=== PATIENT | male | born 2000 | race Two or more races ===

== ENCOUNTER 2024-07-24 17:03 | Emergency (ER) | payer MEDICAID, OTHER ==
[~2024-07-24] VITALS: Ht 193 cm; Wt 96.1 kg
[2024-07-24 18:12] VITALS: BP 140/85; PULSE 74; RESP 16; O2SAT 99
[2024-07-24] MEDS ORDERED: PRED20TA2 PO (18:45)
[2024-07-24] MEDS ORDERED: AMOX875T4 PO (18:45)
[2024-07-24] MEDS ORDERED: ACET500T58 PO (18:45)
[2024-07-24] MEDS: cefTRIAXone SOD 1,000 MG VL IM ONE (18:50)
[2024-07-24 18:58] VITALS: TEMP 99.9
[2024-07-24] MEDS: ACETAMINOPHEN 325 MG TAB PO ONE (18:58)
== END 2024-07-24 19:00 | disposition home or self-care (01) ==
LOC: ER 17:03
DX: J02.9 Acute pharyngitis, unspecified (principal); I10 Essential (primary) hypertension; Z98.890 Other specified postprocedural states; Z79.899 Other long term (current) drug therapy
CPT/HCPCS: 96372; 99283; J0696